=== PATIENT | male | born 1980 ===

== ENCOUNTER → 2019-09-11 | Outpatient (CLI) | payer OTHER ==
--- NOTE | 2019-09-11 12:44 | KCIC ---
CT HEAD WO CONTRAST Date: 09/11/2019 10:30 AM Clinical Indication: Migraine Comparison: None. Technique: 5 mm axial tomographic images were obtained of the head without contrast. These were viewed on brain and bone windows. One or more of the following dose reduction techniques were utilized: Automated exposure control (AEC), Adjustment of mA and/or kV according to patient size, Use of iterative reconstruction technique such as ASiR, CT scan done according to ALARA and image gently/image wisely Findings: The brain parenchyma is normal in attenuation. No intra- or extra-axial mass or fluid collection. No acute hemorrhage. The ventricles are normal in size, shape, and morphology. The anderson-white matter junction is normal. The subarachnoid cisterns are patent. The visualized paranasal sinuses are normal. The visualized portions of the orbits and globes are normal. The mastoid air cells are clear. The zinc furnace charger topogram shows no lytic lesion or fracture. Impression: No acute intracranial process. Electronically signed by: Livan Francis MD (09/11/2019 12:41 PM) [id number]
== END | disposition home or self-care (01) ==
LOC: KCIC CT 10:20
PROVIDERS: ATTEND Family Medicine
DX: G43.001 Migraine without aura, not intractable, with status migrainosus (principal)
CPT/HCPCS: 70450